=== PATIENT | male | born 1995 | race Caucasian/White ===

== ENCOUNTER 2017-12-07 20:29 | Emergency (ER) | payer OTHER ==
[~2017-12-07] VITALS: Ht 172.7 cm; Wt 73.2 kg
[2017-12-07 20:33] VITALS: Ht 172.7 cm; Wt 73.2 kg
[2017-12-07 21:30] LABS: BASOPHILS 0.4 % (0-2); EOSINOPHILS 2.7 % (0-7); HEMATOCRIT 40.6 % (42.0-54.0); IMMATURE GRANULOCYTES 0.1 % (0-5); LYMPHOCYTES 31.5 % (15-50); MCH 31.5 pg (26.0-34.0); MCHC 34.5 g/dL (31.0-37.0); MCV 91.4 fL (80.0-100.0); MEAN PLATELET VOLUME 10.7 fL (7.4-10.4); MONOCYTES 13.2 % (2-11); NEUTROPHILS 52.1 % (40-80); PLATELET COUNT 251 10x3/uL (130-400); RBC 4.44 10x6/uL (4.20-6.10); RDW 12.3 % (11.5-14.5); WBC 8.5 10x3/uL (4.8-10.8)
[2017-12-07] MEDS ORDERED: TORADOL10 MG PO (22:09)
[2017-12-07 22:10] LABS: CALC OSMOLALITY 278 mosm/kg (275-300); CALCIUM 9.3 mg/dL (8.5-10.1); CARBON DIOXIDE 27.6 mmol/L (21.0-32.0); CHLORIDE - SERUM 103 mmol/L (98-107); CREATINE KINASE 225 UL (21-232); GLUCOSE 92 mg/dL (74-106); POTASSIUM - SERUM 3.4 mmol/L (3.5-5.1); SODIUM 140 mmol/L (136-145); UREA NITROGEN 12 mg/dL (7-18); eGFR NON AFRICAN AMERICAN > 90 mL/min (90-120)
[2017-12-07 22:14] LABS: TROPONIN-I < 0.017 ng/mL (0.000-0.060)
[2017-12-07 23:15] VITALS: BP 130/77
== END 2017-12-07 22:45 | disposition home or self-care (01) ==
LOC: D.ER 20:29
PROVIDERS: Emergency Medicine
DX: R07.89 Other chest pain (principal); I45.10 Unspecified right bundle-branch block; F17.200 Nicotine dependence, unspecified, uncomplicated